=== PATIENT | female | born 1970 | race Caucasian/White ===

== ENCOUNTER → 2017-11-09 15:10 | Outpatient (CLI) | payer BC, SELFPAY ==
--- NOTE | 2017-11-09 | IMM_PTH ---
PATIENT: ROSALIO DAVILA LOC: [facility] U#:[id number] AGE/SX: 55/F ROOM: RE11/09/[address]: Dr. Ewa Palm MD : 1970 BED: DIS: SPEC #: [id number] RECD: 11/11/17 14:51 STATUS: DELORES RESheng #: [id number] MICAELA: 11/09/17 00:[address]: Ewa Palm DEPT: IMMUNOHISTOCHEMISTRY RECD BY: Juana Headley ENTERED: 11/11/17 14:52 SP TYPE: IMMUNO OTHR DR: Dr. Alberta Winston MD Tissues: A - Uterine cervix, NOS B - Endocervical Procedures: p16 (initial) KI-67 (add) PHYSICIAN & INSTITUTION [place] [address] SPECIMEN INFORMATION: Tissue Source: A ? Cervical biopsy, B - ECC Clinical Info: KAYLIN Specimen Number: [id number] A & B CPT code: 03143 x2, 19840 x2 METHODOLOGY: Deparaffinized sections of prefer/formalin-fixed tissue or PAP/DQ stained slides are incubated with monoclonal/polyclonal antibodies/oligonucleotide probes. Localization is made via biotin free immunoperoxidase method. Appropriate controls are performed and reacted as expected. Results on target cell population are indicated in the following table: RESULTS: ANTIBODY / CLONE RESULT Block A P16 (E6H4) positive, focal and patchy Ki-67 (30-9) positive, low Block B P16 (E6H4) positive, focal and patchy Ki-67 (30-9) positive, low These tests were developed and their performance characteristics determined by [facility]. They may not have been cleared or approved by the U.S. Food and Drug Administration. The FDA has determined that such clearance or approval is not necessary. INTERPRETATION: A. Cervical biopsy: Mild squamous dysplasia. B. ECC: Focal changes suspicious for HPV cytopathic effect. SJ:rosemarie 11/11/17
--- NOTE | 2017-11-09 14:30 | CER_PTH ---
PATIENT: ROSALIO DAVILA LOC: [facility] #:[id number] AGE/SX: 55/F ROOM: RE11/09/[address]: Dr. Ewa Palm MD : 1970 BED: DIS: SPEC #: [id number] RECD: 11/09/17 15:09 STATUS: DELORES MICHELLE #: [id number] MICAELA: 11/09/17 14:[address]: Ewa Palm DEPT: SURGICAL PATHOLOGY RECD BY: Izaiah Sánchez ENTERED: 11/10/17 09:00 SP TYPE: CERV OTHR DR: Dr. Alberta Winston MD Tissues: A - Uterine cervix, NOS B - Endocervical Procedures: Surgery Specimen Level IV HEADER OPERATION: Colposcopy with biopsy / ECC PRE-OP DIAGNOSIS: LGSIL R87.612 TISSUE SUBMITTED: A ? Cervical biopsy, B - ECC MICROSCOPIC DIAGNOSIS A. 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 Acute and chronic inflammation and squamous metaplasia. See comment. B. ECC: Detached unoriented fragments of squamous epithelium with focal changes suspicious for HPV cytopathic effects. Fragments of benign endocervical epithelium and mucosa with blood and mucous. SADI:rosemarie 11/11/17 COMMENT A & B. Immunohistochemistry ([id number]) for surrogate HPV marker (p16) supports the above diagnosis. MICROSCOPIC DESCRIPTION Slides are reviewed. GROSS DESCRIPTION A - Received in fixative is one container labeled with the patient's name and designated cervical biopsy. The specimen consists of multiple irregular fragments of douglas soft tissue mixed with mucoid tissue that in aggregate measure 0.5 x 0.2 x 0.1 cm. The specimen is totally submitted in one cassette. B - Received in fixative is one container labeled with the patient's name and designated ECC. The specimen consists of multiple irregular fragments of douglas mucoid tissue mixed with hemorrhagic soft tissue that in aggregate measure 1 x 1 x 0.1 cm. The specimen is totally submitted in one cassette. / SADI:rosemarie 11/10/17 TC:5 CPT: 51065 x2
== END ==
PROVIDERS: Family Provider Family Medicine; PCP Family Medicine; Visit Provider Obstetrics & Gynecology
DX: R87.612 Low grade squamous intraepithelial lesion on cytologic smear of cervix (LGSIL) (principal)
CPT/HCPCS: 88305; 88341; 88342

== ENCOUNTER 2018-03-26 15:59 | Emergency (ER) | payer BC, SELFPAY ==
[2018-03-26 16:00] VITALS: BP 144/58; PULSE 92; RESP 16; TEMP 37.7; O2SAT 100; BMI 19.7
--- NOTE | 2018-03-26 16:12 | CT_ITS ---
STUDY: CT ABDOMEN AND PELVIS WITHOUT CONTRAST REASON FOR EXAM: Female, 47 years old. Left-sided flank pain and hematuria. RADIATION DOSAGE (If Supplied By Facility): CTDIvol = ( 6.05 ) mGy, DLP = ( 282.75 ) mGycm TECHNIQUE: Transaxial images were obtained from the dome of the diaphragm to the symphysis pubis without oral contrast, and without intravenous contrast. Sagittal and coronal images were reconstructed. Individualized dose optimization techniques were used for this CT. COMPARISON: None. FINDINGS: The visualized lung bases are unremarkable. The visualized portions of the heart are within normal limits. Normal liver. There are surgical clips in the gallbladder fossa consistent with a prior cholecystectomy. Normal spleen. Normal pancreas. Normal bilateral adrenal glands. Normal right kidney. Normal left kidney. Normal visualized stomach. There is no evidence for dilated bowel, ascites or pneumoperitoneum. Small bowel has a grossly normal appearance. Stool is visible throughout the colon with scattered diverticula. There is non-visualization of the appendix. There is minimal atherosclerotic calcification of the abdominal aorta, without a demonstrated aneurysm. Normal inferior vena cava. Normal retroperitoneum. Normal urinary bladder. Normal visualized uterus. There is a small umbilical hernia containing fat. Normal osseous structures. CT/Abdomen/Pelvis without Cont IMPRESSION: No CT evidence of acute intra-abdominal disease. Electronically Signed: Sera Cabrera MD at 17:52 EDT , Service support ,
--- NOTE | 2018-03-26 16:14 | ED.VISSUMM ---
- ER Visit Summary Date of Service: 03/26/18 Chief Complaint: Lower back pain History of Present Illness: The patient is a 47 F who presents with left lower back pain. This began about 5 days ago. She states it has been worsening since that time. She has had relief with ibuprofen but not resolution in her pain returned shortly after the medication. Currently she rates her pain as 8 out of 10. She describes this as a constant steady aching pain. It is nonradiating. She denies any abdominal pain. She reports some mild nausea but no vomiting. She has had fever up to 100.9 at home. She denies dysuria frequency urgency or gross hematuria. No anterior abdominal pain. She was initially seen at the [facility] where her urine dip did show some leukocyte esterase and blood. The patient was sent here due to concern for kidney stone. Physical Examination: Temperature 99.8 vitals otherwise unremarkable Moist mucous membranes Heart regular rate and rhythm Lungs are clear Abdomen soft nontender nondistended Left CVA tenderness Alert Test Results: Labs returned notable for white blood cell count of 16.5. Chemistry is normal. Urinalysis showed 100 leukocyte esterase but no nitrates WBCs or bacteria. Lactic acid was normal and is negative. Blood and urine cultures were sent. Chest x-ray shows no acute pathology and CT of the flank shows no acute disease. Emergency Department Course and Treatment: Patient does have a leukocytosis reports fever at home although she has been afebrile here. Her CT does not show any obvious acute intra-abdominal process. She is not tachycardic and lactic acid is normal. I explained the etiology of her left flank pain is unclear but I do not believe that this is due to serious life-threatening or surgical pathology. I do not see benefit hospital admission at this time. She is resting comfortably. I did advise that she follow-up closely as an outpatient with her primary care physician and should also likely have repeat blood work. She was instructed on specific signs and symptoms to monitor for and conditions which should prompt return here to the emergency department for reevaluation. She was advised on supportive care. She is agreeable to plan was discharged home. Treatment Plan: [] Disposition: Discharge Impression: Left flank pain Leukocytosis This note was generated with [employer] dictation software. It may contain incorrect words, spelling, and punctuation that were not noted in review of the chart prior to signing ED Disposition - Plan for ED Patient: Chief Complaint: Flank Pain Referrals: Alberta Winston MD [Primary Care Provider] -
[2018-03-26] MEDS: 0.9% Normal Saline 1,000 ML 1000 ML IV (16:17)
[2018-03-26] MEDS: proMETHazine 25 MG/ML Syringe 12.5 MG IV (16:17)
[2018-03-26] MEDS: Ketorolac 30 MG/ML Syringe IV (16:17)
[2018-03-26 16:23] LABS: Absolute Lymphocyte Count 2.29 X10^3/ul (0.83-4.51); Absolute Neutrophil Count 12.3 X10^3/uL (2.0-7.7); Basophil# 0.03 X10^3/uL; Basophil% 0.2 % (0-1); Differential Indicated SCAN CRITERIA MET; Eosinophil# 0.14 X10^3/uL; Eosinophils% 0.8 % (0-5); Hematocrit 36.5 % (37-47); Hemoglobin 11.9 g/dl (12.0-15.0); Lymphocyte # 2.29 X10^3/ul (4.0); Lymphocyte % 13.9 % (19-41); Mean Corp Hgb Conc 32.6 g/gl (32-36); Mean Corpuscular Hgb 30.9 pg (27.0-32.0); Mean Corpuscular Volume 94.8 fL (81-99); Mean Platelet Vol. 8.9 fl (6.2-12.0); Monocyte# 1.74 X10^3/uL; Monocyte% 10.5 % (0-10); Neutrophil % 74.5 % (47-70); POSITIVE COUNT NO; POSITIVE DIFFERENTIAL YES; POSITIVE MORPHOLOGY NO; Platelet Count 401 K/mm3 (150-450); RBC Distribution Width CV 12.6 % (11.6-14.6); RBC Distribution Width SD 43.3 fl (35.1-43.9); Red Blood Count 3.85 M/mm3 (4.2-5.4); White Blood Count 16.5 K/mm3 (4.4-11.0)
[2018-03-26 16:38] LABS: Anion Gap 9 (5-15); BUN 8 mg/dL (7-18); BUN/Creat Ratio 9.7 RATIO (10-20); Calcium,Total 9.5 mg/dL (8.5-10.1); Chloride 103 mmol/L (98-107); Creatinine, Serum 0.83 mg/dL (0.55-1.02); EST Glomerular Filtration Rate 79 mL/min (>60); Est Glom Filt Rate - Afr Amer 96 mL/min (>60); Estimated Creatinine Clearance 70.48 ml/min; Glucose 90 mg/dL (74-106); Potassium 4.1 mmol/L (3.5-5.1); Sodium Level 140 mmol/L (136-145)
[2018-03-26 16:42] LABS: Differential Comment SCANNED
[2018-03-26 17:00] LABS: Pregnancy, Serum, hCG Quali. NEGATIVE Negative (0-9 Nonpreg)
[2018-03-26 17:12] LABS: Bacteria 0 SEEN /hpf (None Seen); Mucous, Urine 0 SEEN /hpf (<or=2+); Red Blood Cells-Urine 0 SEEN /hpf (0-5); Squamous Epithelial Cells - UA 0 SEEN /hpf (5-10)
[2018-03-26 17:18] LABS: Color, Urine Yellow (Yellow); Glucose, Dipstick Normal (Normal); Ketone-Dipstick Negative (Negative); Leukocyte Esterase-Dipstick 100 /ul (Negative); Nitrite-Dipstick Negative (Negative); Occult Blood-Urine 25 /ul (Negative); Protein-Dipstick 30 mg/dl (Negative); Urine Bilirubin Dipstick Negative (Negative); Urine Clarity Clear (Clear); Urine Urobilinogen Normal (Normal)
[2018-03-26 17:26] LABS: White Blood Cells 0-5 SEEN /hpf (0-5)
--- NOTE | 2018-03-26 18:15 | RAD_ITS ---
STUDY: X-RAY CHEST REASON FOR EXAM: Female, 47 years old. Left-sided flank pain. TECHNIQUE: Frontal and lateral views of the chest. COMPARISON: None. FINDINGS: The lungs are hyperexpanded. There are granulomatous calcifications. There is no demonstrated pleural abnormality. Normal size heart. Normal mediastinum and lawanda. Normal visualized pulmonary arteries. Normal visualized aortic arch and descending thoracic aorta. Normal visualized thoracic spine. Normal visualized ribs, clavicles, and shoulders. There is no demonstrated abnormality of the visualized soft tissue structures of the upper abdomen. RAD/Chest PA and Lateral IMPRESSION: Hyperexpansion. No acute pathology. Electronically Signed: Fernie Willoughby MD at 18:31 EDT , Service support ,
[2018-03-26 18:32] VITALS: BP 116/71; PULSE 89; RESP 14; O2SAT 99
--- NOTE | 2018-03-26 19:23 | ED.DEP ---
ED Disposition - Plan for ED Patient: Chief Complaint: Flank Pain Instructions: ED Flank Pain Uncertain Cause Referrals: Alberta Winston MD [Primary Care Provider] -
[2018-03-26 19:33] VITALS: BP 118/68; PULSE 88; RESP 16; O2SAT 99
[2018-03-28 09:44] LABS: Pathologist Review Reviewed
== END 2018-03-26 19:36 | disposition home or self-care (01) ==
PROVIDERS: Emergency Provider Emergency Medicine; Family Provider Family Medicine; PCP Family Medicine
DX: R10.9 Unspecified abdominal pain (principal); D72.829 Elevated white blood cell count, unspecified
CPT/HCPCS: 71046; 74176; 80048; 81001; 83605; 84703; 85025; 87040; 87077; 87086; 87088; 87186; 96361; 96374; 96375; 99283; J7030; A4216

== ENCOUNTER → 2018-04-06 15:08 | Outpatient (CLI) | payer BC, SELFPAY ==
[2018-04-13 16:56] LABS: HPV Reflexed? NOT INDICATED
== END ==
PROVIDERS: Visit Provider Obstetrics & Gynecology
DX: R87.612 Low grade squamous intraepithelial lesion on cytologic smear of cervix (LGSIL) (principal)
CPT/HCPCS: 88175; G0145

== ENCOUNTER → 2018-10-05 11:27 | Outpatient (CLI) | payer BC, SELFPAY ==
[2018-10-11 08:20] LABS: HPV Reflexed? NOT INDICATED
== END ==
PROVIDERS: PCP Family Medicine; Visit Provider Obstetrics & Gynecology
DX: R87.612 Low grade squamous intraepithelial lesion on cytologic smear of cervix (LGSIL) (principal)
CPT/HCPCS: 88175; G0145

== ENCOUNTER → 2019-01-16 | Outpatient (CLI) | payer BC, SELFPAY ==
--- NOTE | 2019-01-16 10:55 | RAD_ITS ---
STUDY: X-RAY - PELVIS AND RIGHT HIP REASON FOR EXAM: Female, 48 years old. Hip pain TECHNIQUE: 3 views of the pelvis and hip. COMPARISON: None. FINDINGS: There is a non-specific bowel gas pattern. Normal visualized soft tissue structures. Normal bilateral iliac wings, sacroiliac joints and visualized sacrum. Normal bilateral superior and inferior pubic rami. Normal pubic symphysis. Normal bilateral ischial tuberosities. Normal visualized femoral head. Normal acetabulum. Normal hip joint. RAD/HIP, UNI W/ Pelvis 2-3 Views IMPRESSION: Normal x-ray examination of the pelvis and hip. Electronically Signed: Melchor Alvarado MD at 0:11 EDT , Service support ,
== END | disposition home or self-care (01) ==
LOC: MTRAD 10:52
PROVIDERS: Family Provider Family Medicine; PCP Family Medicine; Referring Provider Family Medicine; Visit Provider Family Medicine
DX: M25.551 Pain in right hip (principal)
CPT/HCPCS: 73502

== ENCOUNTER → 2019-03-20 | Outpatient (CLI) | payer BC, SELFPAY ==
[2019-03-27 12:31] LABS: HPV Reflexed? YES, CHARGE PATIENT
== END | disposition home or self-care (01) ==
LOC: LABSPEC 11:44
PROVIDERS: Visit Provider Obstetrics & Gynecology
DX: R87.612 Low grade squamous intraepithelial lesion on cytologic smear of cervix (LGSIL) (principal)
CPT/HCPCS: 87624; 88175; G0145

== ENCOUNTER → 2019-10-10 18:08 | Outpatient (CLI) | payer OTHER, SELFPAY ==
[2019-10-14 16:07] LABS: Age Gdln ACOG Testing 30-65 (.)
[2019-10-15 11:56] LABS: HPV APTIMA, High Risk Negative (Negative)
[2019-10-15 11:58] LABS: HPV Reflexed? YES, CHARGE PATIENT
== END ==
PROVIDERS: Referring Provider Obstetrics & Gynecology; Visit Provider Obstetrics & Gynecology
DX: R87.610 Atypical squamous cells of undetermined significance on cytologic smear of cervix (ASC-US) (principal)
CPT/HCPCS: 87624; 88175; G0145